=== PATIENT | female | born 1970 | race Caucasian/White ===

== ENCOUNTER → 2016-02-28 | Outpatient (CLI) | payer SELFPAY ==
[2016-02-28 12:17] LABS: BASOPHILS # (AUTO) 0.07 10*3/UL; BASOPHILS % (AUTO) 1.1 % (0-1); EOSINOPHILS % (AUTO) 4.7 % (0-8); HEMATOCRIT 43.6 % (37.0-47.0); HEMOGLOBIN 15.2 g/dL (12.0-16.0); IMM GRAN % (AUTO) 0 % (0-5); IMM GRAN# (AUTO) 0 10*3/UL; LYMPHOCYTES # (AUTO) 1.99 10*3/uL; MEAN CORPUSCULAR HEMOGLOBIN 32.2 PG (27-31); MEAN CORPUSCULAR HGB CONC 34.9 g/dL (33-37); MONOCYTES # (AUTO) 0.67 10*3/UL (0.3-0.8); MONOCYTES % (AUTO) 10.4 % (5-15); NEUTROPHILS # (AUTO) 3.39 10*3/UL; NEUTROPHILS % (AUTO) 52.8 % (50-80); RDW COEFFICIENT OF VARIATION 12.2 % (11.5-14.5); RED BLOOD COUNT 4.72 10^6/uL (4.20-5.40); WHITE BLOOD COUNT 6.42 10^3/uL (4.8-10.8)
[2016-02-28 12:20] LABS: PLATELET MORPHOLOGY COMMENT NORMAL MORPHOLOGY (NORM)
[2016-02-28 12:36] LABS: AMYLASE 74 U/L (30-110); ASPARTATE AMINO TRANSFERASE 90 IU/L (8-39); BILIRUBIN,TOTAL 2.2 mg/dL (0.3-1.2); BLOOD UREA NITROGEN 9 mg/dL (7-22); CALCIUM 9.4 mg/dL (8.7-10.7); CHLORIDE 98 meq/L (98-112); CREATININE 0.6 mg/dL (0.50-1.20); EST GLOMERULAR FILTRATION > 60 (>60 ml/min/1.73m(2)); GLUCOSE 87 mg/dL (78-110); POTASSIUM 3.5 meq/L (3.8-5.2); SODIUM 137 meq/L (135-145); TOTAL PROTEIN 7.6 g/dL (6.1-8.0)
[2016-02-28 13:26] LABS: BILIRUBIN,URINE NEGATIVE (NEG); CLARITY,URINE CLEAR (CLEAR); GLUCOSE, URINE (UA) NEGATIVE (NEG); LEUKOCYTE ESTERASE ,URINE NEGATIVE (NEG); NITRATE,URINE POSITIVE (NEG); PROTEIN,URINE NEGATIVE (NEG)
[2016-02-28 13:32] LABS: OCCULT BLOOD,URINE TRACE (NEG)
[2016-02-28 13:33] LABS: URINE SAMPLE TYPE CLEAN CATCH URINE
[2016-02-28 13:34] LABS: BACTERIA,URINE RARE; RENAL EPITHELIAL CELLS,URINE RARE; SQUAMOUS EPITHELIAL CELL,UR MODERATE
== END ==
LOC: MOB LAB 09:47
PROVIDERS: ATTEND Nurse Practitioner Family
DX: R10.11 Right upper quadrant pain (principal); R10.12 Left upper quadrant pain; R10.32 Left lower quadrant pain; R11.14 Bilious vomiting; R19.7 Diarrhea, unspecified; F17.210 Nicotine dependence, cigarettes, uncomplicated
CPT/HCPCS: 36415; 80053; 81001; 82150; 83690; 85025; 87077; 87088; 87186

== ENCOUNTER → 2016-05-14 | Outpatient (CLI) | payer SELFPAY ==
[2016-05-14 17:31] LABS: BASOPHILS # (AUTO) 0.12 10*3/UL; BASOPHILS % (AUTO) 1.7 % (0-1); EOSINOPHILS # (AUTO) 0.12 10*3/UL; EOSINOPHILS % (AUTO) 1.7 % (0-8); HEMOGLOBIN 14.9 g/dL (12.0-16.0); LYMPHOCYTES # (AUTO) 3.89 10*3/uL; MEAN CORPUSCULAR HEMOGLOBIN 33.9 PG (27-31); MEAN CORPUSCULAR HGB CONC 35.5 g/dL (33-37); MEAN CORPUSCULAR VOLUME 95.5 FL (81-99); MEAN PLATELET VOLUME 9.6 FL (7.4-12.2); MONOCYTES % (AUTO) 7.1 % (5-15); NEUTROPHILS # (AUTO) 2.44 10*3/UL; NEUTROPHILS % (AUTO) 34.5 % (50-80)
[2016-05-14 17:33] LABS: PLATELET MORPHOLOGY COMMENT NORMAL MORPHOLOGY (NORM); RBC MORPHOLOGY COMMENT NORMAL MORPHOLOGY (NORM); WBC MORPHOLOGY COMMENT NORMAL MORPHOLOGY (NORM)
== END ==
LOC: MOB LAB 17:08
PROVIDERS: ATTEND Nurse Practitioner Family
DX: J02.9 Acute pharyngitis, unspecified (principal)
CPT/HCPCS: 36415; 85025

== ENCOUNTER 2016-07-03 08:22 | Emergency (ER) | payer SELFPAY ==
--- NOTE | 2016-07-03 08:38 | PDOC ---
Alcohol/Drug Abuse HPI - General Chief Complaint: Drug / Alcohol Use &/or Abuse Stated Complaint: ETOH INTOXICATION/POSSIBE EDIBLE DRUG INJESTION Date Seen by Provider: 07/03/16 Time Seen by Provider: 08:30 Source: POSITIVE: Patient, Police Exam Limitations: POSITIVE: No limitations Nurse's Notes Reviewed & Considered: Yes - History of Present Illness Initial Comments: Patient was brought in by Police Department acutely intoxicated. Police received a call from patient's family that she was intoxicated and they arrived at her home, found her to be intoxicated, stumbling into arshad, and abusing marijuana. She is brought in for clearance for intermediate. Body Location Affected: REPORTS: Other (Acute intoxication) Timing: REPORTS: Unknown Duration: Unknown Severity: Severe Quality: REPORTS: Other Context: REPORTS: Altered Mental Status, Chronic ETOH Dependence, Chronic Drug Dependence Similar Symptoms Previously: Yes Recent Care Received: REPORTS: Denies Associated Symptoms: REPORTS: Restlessness, Confusion Any Prior Injuries Related to Current Complaint?: No - Patient Home Medications Home Medications: Home Medications Albuterol Sulfate [Proair Hfa] 1 - 2 puff INH Q4-6H PRN #1 inhaler 11/02/15 Valacyclovir HCl [Valtrex] 1,000 mg PO BID tab 11/14/15 Multivitamin/Iron/Folic Acid [Centrum Complete Multivit Tab] 1 tab PO DAILY tab 02/28/16 Ondansetron [Zofran Odt] 1 tab PO Q8H PRN #12 tab 02/28/16 Vitamin B Complex [B Complex] 1 each PO QD tab 02/28/16 - Patient Allergies Allergies/Adverse Reactions: Allergies Allergy/AdvReac Type Severity Reaction Status Date / Time amoxicillin trihydrate Allergy Severe HIVES Unverified 05/14/16 16:12 [From Augmentin] loratadine [From Claritin] Allergy Severe NOT Unverified 05/14/16 16:12 APPLICABLE metronidazole [From Flagyl] Allergy Severe HIVES Unverified 05/14/16 16:12 Metronidazole HCl Allergy Severe HIVES Unverified 05/14/16 16:12 [From Flagyl] potassium clavulanate Allergy Severe HIVES Unverified 05/14/16 16:12 [From Augmentin] promethazine HCl Allergy Severe HALLUCINATI Unverified 05/14/16 16:12 [From Phenergan] ONS Sulfa (Sulfonamide Allergy Severe ITCHING Unverified 05/14/16 16:12 Antibiotics) potassium clavulanate Allergy Severe HIVES Uncoded 10/17/15 06:23 Past Medical History - heen HEENT History: Denies History Cardiovascular History: Denies History Respiratory History: Denies History Gastrointestinal History: Pancreatitis Genitourinary History: Denies History Endocrine History: Denies History Musculoskeletal History: Denies History Prosthesis or Implant: No Neurological History: Denies History Blood Disorders: Denies History Psychiatric History: Anxiety Disorders History of Sexually Transmitted Diseases: No Cancer History: Denies History History of MDRO: No History of Other Communicable Diseases: No Alcohol Use: Heavy Substance Use Type: None Previous Surgical History: Yes Type / Date of Surgery: CHOLECYSTECTOMY, TUBAL SURGERY, X 2. Anesthesia Reactions: No Malignant Hyperthermia: No Significant Family History: No pertinent family hx ROS - Limitations ROS Limitations: Intoxication (Patient is intoxicated and further review of systems is unavailable) Alcohol/Drug Abuse PE - General Appearance General Appearance: POSITIVE: Obtunded - HEENT HEENT: POSITIVE: Head Inspection Nml, Eyes Inspection Nml, Ears Inspection Nml, Nose Inspection Nml, Oral/Dental Inspect. Nml, Pharynx Inspect. Nml, PERRL, EOMI - Pupil Size Pupil Size: 5 mm: Bilateral - Neurological/Psychological Neurological: POSITIVE: Alert, Disoriented To Place, Disoriented To Time Cranial Nerves: POSITIVE: Other (Horizontal nystagmus is present, the remainder of her cranial nerves are negative for finding.) Cerebellar: POSITIVE: Abnormal Gait, Abnormal Finger To Nose, Other (Patient with significant ataxia) Peripheral Exam: POSITIVE: No Motor Deficits, Pronator Drift RUE, Pronator Drift LUE Reflexes: Patellar (R): 2+, Patellar (L): 2+, Radial (R): 2+, Radial (L): 2+ - Neck Neck: POSITIVE: Supple, Non Tender - Respiratory Respiratory: POSITIVE: No Respiratory Distress (Strong smell of alcohol present) , Breath Sounds Normal - CVS CVS: POSITIVE: Heart Sounds Normal, Tachycardia - Abdomen Abdomen: Soft: (All Quadrants), Normal Bowel Sounds: (All Quadrants), Denies Tenderness: (All Quadrants) - Skin Skin: POSITIVE: Normal for Race, No Rash, Warm, Dry - Extremities Extremity: Non-Tender: (All Extremities), Normal ROM: (All Extremities), Normal Inspection: (All Extremities), Pelvis Stable: (All Extremities) Alcohol/Drug Abuse Progress - Patient's Progress Status: POSITIVE: Unchanged MDM / ED Course: Patient was examined, she is in no need of further medical intervention at this time. She is being discharged to the custody of the police. They are to return if she has increasing abdominal pain, vomiting, fevers or other concerns. - Consult Counseled: POSITIVE: Patient, RE: DX - Treatment Voluntarily Accepts Detox: No (patient being transferred to police custody) Patient Care Time - Estimated PCT Patient Care Time (In Minutes): 10 Vital Signs - VS Reviewed Vital Signs Reviewed: Yes Discharge Clinical Impression: Alcohol intoxication, Continuous chronic alcoholism Discharge Disposition: Discharged to Custody of Law Enforcement Condition: Stable Additional Instructions: You have been evaluated, you're medically stable at this time. He do not require further need of medical intervention. You may return to the emergency department if you have fevers greater than 102, increasing abdominal pain, increasing vomiting, or other concerns. Date Decision to Transfer to Another Facility: 07/03/16 Time Decision to Transfer to Another Facility: 08:41
[2016-07-03 09:19] VITALS: RESP 15; TEMP 97.2
== END 2016-07-03 08:52 ==
LOC: ER 08:22
DX: F10.129 Alcohol abuse with intoxication, unspecified (principal); F12.129 Cannabis abuse with intoxication, unspecified
CPT/HCPCS: 99282

== ENCOUNTER → 2016-07-15 | Outpatient (CLI) | payer SELFPAY ==
[2016-07-15 12:50] LABS: BASOPHILS # (AUTO) 0.17 10*3/UL; BASOPHILS % (AUTO) 1.8 % (0-1); EOSINOPHILS # (AUTO) 0.27 10*3/UL; EOSINOPHILS % (AUTO) 2.8 % (0-8); HEMATOCRIT 44.2 % (37.0-47.0); HEMOGLOBIN 14.2 g/dL (12.0-16.0); LYMPHOCYTES # (AUTO) 2.25 10*3/uL; MEAN CORPUSCULAR HEMOGLOBIN 34.1 PG (27-31); MEAN CORPUSCULAR HGB CONC 32.1 g/dL (33-37); MEAN PLATELET VOLUME 9.7 FL (7.4-12.2); MONOCYTES # (AUTO) 0.92 10*3/UL (0.3-0.8); MONOCYTES % (AUTO) 9.5 % (5-15); NEUTROPHILS # (AUTO) 6.03 10*3/UL; NEUTROPHILS % (AUTO) 62.4 % (50-80); RED BLOOD COUNT 4.17 10^6/uL (4.20-5.40)
[2016-07-15 12:51] LABS: PLATELET MORPHOLOGY COMMENT NORMAL MORPHOLOGY (NORM); RBC MORPHOLOGY COMMENT NORMAL MORPHOLOGY (NORM); WBC MORPHOLOGY COMMENT NORMAL MORPHOLOGY (NORM)
[2016-07-15 13:26] LABS: BLOOD UREA NITROGEN 4 mg/dL (7-22); BUN/CREATININE RATIO 5.71 (6-20); CALCIUM 9.8 mg/dL (8.7-10.7); EST GLOMERULAR FILTRATION > 60 (>60 ml/min/1.73m(2)); LIPASE 115 IU/L (23-300); SERUM ALBUMIN 4.4 g/dL (3.5-4.8)
== END ==
LOC: MOB LAB 11:51
PROVIDERS: ATTEND Nurse Practitioner Family
DX: R10.84 Generalized abdominal pain (principal); F17.200 Nicotine dependence, unspecified, uncomplicated
CPT/HCPCS: 36415; 80053; 82150; 83690; 85025

== ENCOUNTER 2016-08-04 02:04 | Emergency (ER) | payer SELFPAY ==
[2016-08-04] MEDS ORDERED: KETOROLAC 15 MG/1 ML VIAL IM ONE (02:10)
--- NOTE | 2016-08-04 02:14 | PDOC ---
Lower Extremity Injury HPI - General Chief Complaint: Lower Extremity Problem/Injury Stated Complaint: BIG TOE PAIN Date Seen by Provider: 08/04/16 Time Seen by Provider: 02:10 Source: POSITIVE: Patient Exam Limitations: POSITIVE: No limitations Nurse's Notes Reviewed & Considered: Yes - History of Present Illness Initial Comments: Patient comes in tonight complaining of right great toe pain. Patient stepped in a hole at approximately 10 AM on the morning of the . She comes in now to a.m. on August 04 with complaints of pain stating her pain as a 9/10 and that the pain awoke her from sleep. She took Tylenol and it continues to hurt and burn. It is noted to be significantly bruised on her distal great toe. The pain radiates proximally into her tib-fib region. She denies other symptoms. Have you received a tetanus shot in the past 10 years?: Unknown Body Location Affected: REPORTS: Lower Extremity (R) Timing: REPORTS: Abrupt Duration: <24 hours Severity: Severe Quality: REPORTS: "Pain" Location at Time of Onset: REPORTS: Home Context of Injury: REPORTS: Fall Location of Injury: REPORTS: Right Toe(s) (Right great toe) Modifying Factors: improves with: Movement, Nothing Relieves Any Prior Injuries Related to Current Complaint?: No - Patient Home Medications Home Medications: Home Medications Albuterol Sulfate [Proair Hfa] 1 - 2 puff INH Q4-6H PRN #1 inhaler 11/02/15 Valacyclovir HCl [Valtrex] 1,000 mg PO BID tab 11/14/15 Multivitamin/Iron/Folic Acid [Centrum Complete Multivit Tab] 1 tab PO DAILY tab 02/28/16 Vitamin B Complex [B Complex] 1 each PO QD tab 02/28/16 Venlafaxine HCl [Venlafaxine Hcl Er] 1 cap PO QD #66 cap 07/30/16 Clonazepam 0.5 - 1 tab PO QD #30 tab 07/31/16 - Patient Allergies Allergies/Adverse Reactions: Allergies Allergy/AdvReac Type Severity Reaction Status Date / Time amoxicillin trihydrate Allergy Severe HIVES Verified 07/03/16 08:35 [From Augmentin] loratadine [From Claritin] Allergy Severe NOT Verified 07/03/16 08:35 APPLICABLE metronidazole [From Flagyl] Allergy Severe HIVES Verified 07/03/16 08:35 Metronidazole HCl Allergy Severe HIVES Verified 07/03/16 08:35 [From Flagyl] potassium clavulanate Allergy Severe HIVES Verified 07/03/16 08:35 [From Augmentin] promethazine HCl Allergy Severe HALLUCINATI Verified 07/03/16 08:35 [From Phenergan] ONS Sulfa (Sulfonamide Allergy Severe ITCHING Verified 07/03/16 08:35 Antibiotics) potassium clavulanate Allergy Severe HIVES Uncoded 07/03/16 08:35 Past Medical History - heen HEENT History: Denies History Cardiovascular History: Denies History Respiratory History: Denies History Gastrointestinal History: Pancreatitis Genitourinary History: Denies History Endocrine History: Denies History Musculoskeletal History: Denies History Prosthesis or Implant: No Neurological History: Denies History Blood Disorders: Denies History Psychiatric History: Anxiety Disorders History of Sexually Transmitted Diseases: No Cancer History: Denies History History of MDRO: No History of Other Communicable Diseases: No Alcohol Use: Heavy Substance Use Type: None Previous Surgical History: Yes Type / Date of Surgery: CHOLECYSTECTOMY, TUBAL SURGERY, X 2. Anesthesia Reactions: No Malignant Hyperthermia: No Significant Family History: No pertinent family hx ROS Constitution: REPORTS: Denies Symptoms Cardiovascular: REPORTS: Denies Cardiac Symptoms Respiratory: REPORTS: Denies Resp Symptoms Neurological: REPORTS: Denies Neuro Symptoms Gastrointestinal: REPORTS: Denies GI Symptoms Endocrine: REPORTS: Denies Symptoms Musculoskeletal: REPORTS: Joint Pain (Right great toe), Recent Injury Genitourinary: REPORTS: Denies Symptoms Eyes: REPORTS: Denies Symptoms ENT: REPORTS: Denies Symptoms Skin: REPORTS: Denies Skin Symptoms Lympathic: REPORTS: Denies Lympathic Symptoms Immunologic: POSITIVE: Denies Symptoms Psychiatric: POSITIVE: Denies Psych Symptoms Lower Ext Complaint Exam - General Appearance General Appearance: POSITIVE: Alert, Cooperative, No Acute Distress - Extremities Lower Extremity: POSITIVE: Normal Temperature, Skin Intact, Soft Tissue Tenderness, Swelling, Ecchymosis, Limited ROM Gait: POSITIVE: Limited by Pain Neurovascular/Tendon: POSITIVE: Sensation Normal, No Vascular Compromise Skin: POSITIVE: Warm, Dry, Ecchymosis - HEENT HEENT: POSITIVE: Head Inspection Nml, Eyes Inspection Nml, Ears Inspection Nml, Nose Inspection Nml, PERRL, EOMI - Neck / Back Neck/Back: POSITIVE: Normal Inspection Lower Ext Complaint Progress - Results Reviewed by me Xrays/CTs/US Reviewed by me: Yes Discussed with Radiologist: Yes - Patient's Progress Pain Medication Addressed: POSITIVE: Yes Re-Examine Time:: 03:03 Status: POSITIVE: Improved MDM / ED Course: Patient was examined, she received IM Toradol and a radiographic examination of her right great toe. Findings: X-ray of her right great toe per my interpretation shows no acute osseous abnormalities. Assessment: Contusion right great toe, cannot rule out ligamentous injury. Her graft plan: Discharge home ice elevation crutches and rest. I am providing a postop shoe to prevent movement of her toe. She is to follow-up with orthopedics if there is no improvement in 7-10 days. - Consult Counseled: POSITIVE: Patient, RE: Radiology Results, RE: DX, RE: Need for F/U Patient Care Time - Estimated PCT Patient Care Time (In Minutes): 20 Vital Signs - VS Reviewed Vital Signs Reviewed: Yes Discharge Clinical Impression: Contusion Discharge Disposition: Discharged to Home Condition: Stable Patient Instructions Given at Discharge: Foot Sprain (ED)
[2016-08-04 05:19] VITALS: RESP 18; TEMP 97.5
--- NOTE | 2016-08-05 01:01 | DI ---
XR TOES MIN 2VW,08/04/2016 2:09 AM: Clinical History: Fall with discoloration and pain. Previous Exam: February 18, 2012 Findings: AP and lateral views of the right great toe are obtained, and demonstrate anatomic alignment without fractures. Surrounding soft tissues are unremarkable. The sesamoid bones are within normal limits. Th ere is a healed right fifth metatarsal fracture. Impression: No acute bony injury.
== END 2016-08-04 03:25 | disposition home or self-care (01) ==
LOC: ER 02:04
DX: S90.121A Contusion of right lesser toe(s) without damage to nail, initial encounter (principal); W17.2XXA Fall into hole, initial encounter
CPT/HCPCS: 73660; 96372; 99282; J1885

== ENCOUNTER → 2016-09-03 | Outpatient (CLI) | payer OTHER ==
--- NOTE | 2016-09-04 11:25 | DI ---
XR C-SPINE COMPLETE MIN 4VW,09/03/2016 2:56 PM: Clinical History: Neck pain Previous Exam: None at this facility. Findings: AP, lateral, flexion and extension views of the cervical spine are obtained, and demonstrate reversal of the normal lordotic curvature of the cervical spine. There is loss of intervertebral disc height at the C3/4 and C4/5 levels. There is also some mild loss of disc space at C5/6 and grade 1 retrolist hesis of C5 on C6. Vertebral body height is preserved. The prevertebral soft tissues are unremarkable. The lung apices are clear. A few peripheral vascular calcifications are noted in the region of the left carotid. Impression: Diffuse degenerative changes of the cervical spine without instability. There is stable grade 1 retro listhesis of C5 on C6.
--- NOTE | 2016-09-04 11:25 | DI ---
XR ELBOW COMPLETE MIN 3VW,09/03/2016 3:04 PM: Clinical History: Right elbow pain Previous Exam: None at this facility. Findings: 3 views of the right elbow are obtained, and demonstrate anatomic alignment without fractures. The carpio rrounding soft tissues are unremarkable. Impression: No fracture.
== END ==
LOC: ORTHO 15:22
PROVIDERS: ATTEND Physician Assistant
DX: M25.521 Pain in right elbow (principal); M54.2 Cervicalgia; M77.11 Lateral epicondylitis, right elbow; R20.2 Paresthesia of skin; M47.22 Other spondylosis with radiculopathy, cervical region
CPT/HCPCS: 72050; 73080

== ENCOUNTER → 2016-09-13 | Outpatient (CLI) | payer OTHER ==
--- NOTE | 2016-09-15 20:05 | DI ---
MRI CERVICAL SPINE W/O CN,09/13/2016 2:15 PM: Clinical History: Radiculopathy of the cervical spine. Previous Exam: None at this facility. Findings: Multiplanar MR images are obtained through the cervical spine without contrast. There is reversal of the normal lordotic curvature of the cervical spine. The base of the skull and posterior fossa are unremarkable. The prevertebral soft tissues are unremarkable as well. The major vascular flow voids are unremarkable. Vertebral body height is preserved. There is mild loss of intervertebral disc height with uncovertebr al joint osteophytes. The prevertebral soft tissues are unremarkable. Individual intervertebral disc spaces: C2/C3: No significant stenosis. C3/4: There is loss of intervertebral disc height with uncovertebral joint osteophyte formation and a 2 mm broad-based disc bulge with some facet hypertrophy contributing to mild left and moderate right neural foraminal narrowing as well as mild central canal stenosis. C4/5: There is disc desiccation and a 2 mm broad-based disc bulge with uncovertebral joint osteophyte formation and some mild facet hypertrophy contributing to moderate to severe central canal stenosis with severe left and moderate right neural foraminal narrowing. C5/6 there is disc desiccation, loss of intervertebral disc height and a 3 mm broad-based disc bulge combining with some uncovertebral joint and facet hypertrophy to cause moderate to severe central can al stenosis with moderate to severe left and moderate right neural foraminal narrowing. C6/7: No significant stenosis. C7/T1: No significant stenosis. Impression: C3/4: There is loss of intervertebral disc height with uncovertebral joint osteophyte formation and a 2 mm broad-based disc bulge with some facet hypertrophy contributing to mild left and moderate right neural foraminal narrowing as well as mild central canal stenosis. C4/5: There is disc desiccation and a 2 mm broad-based disc bulge with uncovertebral joint osteophyte formation and some mild facet hypertrophy contributing to moderate to severe central canal stenosis with severe left and moderate right neural foraminal narrowing. C5/6 there is disc desiccation, loss of intervertebral disc height and a 3 mm broad-based disc bulge combining with some uncovertebral joint and facet hypertrophy to cause moderate to severe central can al stenosis with moderate to severe left and moderate right neural foraminal narrowing.
== END ==
LOC: MRI 14:14
PROVIDERS: ATTEND Physician Assistant
DX: M54.12 Radiculopathy, cervical region (principal); M50.11 Cervical disc disorder with radiculopathy, high cervical region; M50.121 Cervical disc disorder at C4-C5 level with radiculopathy; M50.122 Cervical disc disorder at C5-C6 level with radiculopathy
CPT/HCPCS: 72141

== ENCOUNTER → 2016-09-13 | Outpatient (CLI) | payer OTHER ==
[2016-09-13 17:56] LABS: BILIRUBIN,URINE NEGATIVE (NEG); CLARITY,URINE CLEAR (CLEAR); COLOR,URINE YELLOW; GLUCOSE, URINE (UA) NEGATIVE (NEG); NITRATE,URINE NEGATIVE (NEG); OCCULT BLOOD,URINE NEGATIVE (NEG); PH,URINE 6.5 (5.0-8.5); PROTEIN,URINE NEGATIVE (NEG); UROBILINOGEN,URINE 0.2 EU/dL (0.2)
[2016-09-13 17:57] LABS: URINE SAMPLE TYPE CLEAN CATCH URINE
== END ==
LOC: LAB 17:17
PROVIDERS: ATTEND Nurse Practitioner Family
DX: R82.99 Other abnormal findings in urine (principal)
CPT/HCPCS: 81003; 82565

== ENCOUNTER → 2016-09-23 | Outpatient (CLI) | payer OTHER ==
--- NOTE | 2016-09-24 13:21 | DI ---
History: Injury to hand Comparison: None Findings: No fracture No dislocation Obstructive changes The degenerative changes No soft tissue foreign bodies Impression Unremarkable plain film study of the hand
== END ==
LOC: MOB RAD 12:43
PROVIDERS: ATTEND Physician Assistant Medical
DX: S69.91XA Unspecified injury of right wrist, hand and finger(s), initial encounter (principal); S60.221A Contusion of right hand, initial encounter; W23.0XXA Caught, crushed, jammed, or pinched between moving objects, initial encounter
CPT/HCPCS: 73130

== ENCOUNTER → 2016-09-25 | Outpatient (CLI) | payer OTHER ==
--- NOTE | 2016-09-25 12:05 | DI ---
History: Right wrist pain Comparison: None Findings: No fracture No malalignment No destructive/erosive lesions. No degenerative changes No soft tissue foreign bodies Impression Unremarkable study of the wrist
--- NOTE | 2016-09-25 12:52 | DI ---
History: Elbow pain Comparison: September 03: 2016 Findings: No fracture No malalignment No destructive changes. No erosive lesions. No degenerative changes No joint effusion No changes compared with September 03, 2016. Impression Unremarkable plain film study of the elbow
--- NOTE | 2016-09-25 13:09 | DI ---
History: Left wrist pain Comparison: February 09, 2015 Findings: No fracture No malalignment No destructive/erosive lesions No degenerative changes No changes compared with February 10, 2000 Impression Unremarkable plain film study of the wrist.
== END ==
LOC: ORTHO 11:15
PROVIDERS: ATTEND Physician Assistant
DX: M25.531 Pain in right wrist (principal); M25.532 Pain in left wrist; M25.521 Pain in right elbow; G56.03 Carpal tunnel syndrome, bilateral upper limbs; M77.11 Lateral epicondylitis, right elbow; Z72.0 Tobacco use
CPT/HCPCS: 73080; 73110

== ENCOUNTER 2016-10-03 12:52 | Day surgery (SDC) | payer OTHER ==
[~2016-10-03 12:52] MED LIST: Clindamycin 900mg (Premix) 50 ML IV ONE; LIDOCAINE W/ SODIUM BICARB 0.5 ML SYR ONE; Lactated Ringers 1,000 ML PRIMARY IV ONE
[2016-10-03 13:26] LABS: URINE SPECIFIC GRAVITY - MAN 1.008
[2016-10-03] MEDS ORDERED: LIDOCAINE 2%/ EPI 1:200,000 - 20 ML VIAL ONE (13:36)
[2016-10-03] MEDS ORDERED: MIDAZOLAM 5 MG/1 ML ONE (13:36)
[2016-10-03] MEDS ORDERED: DEXAMETHASONE PF 10 MG/1 ML VIAL ONE (13:37)
[2016-10-03] MEDS ORDERED: fentaNYL Inj 100 MCG/2 ML VIAL ONE (13:37)
[2016-10-03] MEDS ORDERED: NORMAL SALINE 10 ML SYRINGE FLUSH IVP PRN (15:06)
[2016-10-03] MEDS ORDERED: HYDROcodone-APAP 5 MG -325 MG TABLET PO PRN (15:06)
[2016-10-03] MEDS ORDERED: MAG HYDROX/AL HYDROX/SIMETH 30 ML SUSP PO PRN (15:06)
[2016-10-03] MEDS ORDERED: CALCIUM CARBONATE 500 MG (TUMS) CHEWABLE TABLET PO PRN (15:06)
[2016-10-03] MEDS ORDERED: MORPHINE SULFATE 2 MG/1 ML IVP PRN (15:06)
[2016-10-03] MEDS ORDERED: IBUPROFEN 400 MG TABLET PO PRN (15:06)
[2016-10-03] MEDS ORDERED: BISACODYL 5 MG TABLET PO PRN (15:06)
[2016-10-03] MEDS ORDERED: BISACODYL 10 MG SUPPOSITORY RECTAL PRN (15:06)
[2016-10-03] MEDS ORDERED: diphenhydrAMINE 25 MG CAPSULE PO PRN (15:06)
[2016-10-03] MEDS ORDERED: ONDANSETRON 4 MG/2 ML VIAL IVP PRN (15:06)
[2016-10-03] MEDS ORDERED: Prochlorperazine Tab 10 MG TAB PO PRN (15:06)
[2016-10-03] MEDS ORDERED: Ondansetron ODT Tab 8 MG TAB PO PRN (15:06)
[2016-10-03] MEDS ORDERED: ACETAMINOPHEN 325 MG TABLET PO PRN (15:06)
--- NOTE | 2016-10-03 15:13 | CRNA.PROCE ---
Nerve Block Documentation - - Safety Measures: Time Out Taken, Site Verified - - Type of Nerve Block Used: Right Axillary Block (Primary anesthetic for Right CTR ) Position for Nerve Block: Supine Moniters Used During Block: EKG, SPO2, NIBP Oxygen Sumpplented: Yes Sedation Used - Enter Amount in Comment Field: Midazolam (mg): Yes (2.5), Fentanyl (mcg): Yes (50 mcgs) Skin Prep Used: ChloroPrep (Twice) Draped: No Technique: Nerve Stimulator Nerve Block Needle Used: 40 mm ProBlk II Stimulation Hz: 1 Stimulation Staring mA: 1.6 Stimulation Ending mA: 0.6 Local Anesthetic - Enter Amt in Comment Field: 2 % Xylocaine with Epinephrine 1: 200,000 (mL): Yes (20 ml in 3 m increments), 2 % Mepivacaine (mL): Yes (20 ml in 3 ml increments) Additives to Nerve Blocks: Dexamethasone (mg): Yes (10 mg)
[2016-10-03] MEDS ORDERED: Lactated Ringers 1,000 ML PRIMARY IV SCH (15:15)
[2016-10-03 15:44] VITALS: RESP 16
[2016-10-03 18:08] VITALS: TEMP 97.3
== END 2016-10-03 17:25 | disposition home or self-care (01) ==
LOC: SDSC 12:52
PROVIDERS: ATTEND Orthopaedic Surgery
DX: G56.01 Carpal tunnel syndrome, right upper limb (principal)
CPT/HCPCS: 25105; 64721; 84703; J1100; J2250; J3010; S0077; J7120